=== PATIENT | female | born 1940 | race Caucasian/White ===

== ENCOUNTER 2017-04-17 09:18 | Inpatient (IN) | payer OTHER ==
[~2017-04-17] VITALS: Ht 157.5 cm; Wt 66.2 kg
--- NOTE | ~2017-04-17 | HC ---
[facility] [place] [address] CONSULTATION Name: SHREYASBECCA CRISTIAN Room #: 402-P [facility] IN M..#: [id number] Admission: 04/17/17 Attend Phys: Christoph Hess MD Discharge: 04/18/17 Date of : 42 Report #: [id number] THIS REPORT FOR: //name// CC: Andriy Hess DATE OF SERVICE: 04/17/2017 CHIEF COMPLAINT: Right wrist pain. HISTORY OF PRESENT ILLNESS: The patient is a very pleasant 76-year-old female seen today for evaluation of her right wrist. The patient reports that she slipped and fell on her driveway, landed on her outstretched hand resulting in a laceration as well as deformity. She then went to [facility] for further care and treatments. She denies loss of consciousness or other injuries. She reports a history of a left wrist distal radius fracture a few years ago. The patient is here with friend. PAST MEDICAL HISTORY: Significant for hypertension, prior history of left distal radius fracture, and left bundle branch block. PAST SURGICAL HISTORY: Hysterectomy in 1988. ALLERGIES: No known drug allergies. PHYSICAL EXAMINATION: VITAL SIGNS: Include BP 168/59, pulse 52, respirations 18, pulse ox was 95-100%, temperature was 98.3. GENERAL: She is alert, oriented, answering questions appropriately. EXTREMITIES: Revealed a well-healed incision on the left wrist. Right wrist demonstrated some multiple abrasions on the volar aspect of the wrist with a small punctate area approximately 2 mm where there appeared to be some intermittent bleeding. This was in the region of the metaphyseal area of the distal radius and potentially communicating with the fracture. Mild swelling was noted. Compartments were soft. She is able to minimally flex and extend the fingers and reported intact sensation to light touch. Denied tenderness about the more proximal forearm, elbow, arm or shoulder. She reported no other injuries. IMAGING: Radiographs reveal a comminuted and displaced distal radius and ulna fracture. IMPRESSION: Grade 1 open fracture of the right distal radius, with displacement noted. PLAN: Tetanus and antibiotics have been initiated and updated in the Emergency [address] [address] CONSULTATION Name: BECCA PRITCHETT Room #: 402-P [facility] IN .R.#: [id number] Admission: 04/17/17 Attend Phys: Christoph Hess MD Discharge: 04/18/17 Date of : 42 Report #: [id number] Room. A sterile dressing was applied. She was splinted with a volar wrist splint by the Emergency Room. The patient is going to be admitted by the Hospitalist Group and will plan for operative intervention when the operating room is available and implants are available. We discussed the risks and potential complications of her injury as well as the risks, benefits, alternatives and potential complications of her treatment. The patient wished to proceed with irrigation and debridement of fracture. We discussed the potential for infection with this being an open fracture and then we discussed the specifics of her potential planned hardware. Questions were encouraged, all were answered. The patient had a chance to be evaluated by Medicine as well as Anesthesia preoperatively. We will complete her antibiotic course and if patient does well as expected, hopefully patient can be discharge tomorrow. <ELECTRONICALLY SIGNED> By: Rodrigo Ford MD 05/11/17 1514 [id number] [id number] Rodrigo Ford MD /nt
--- NOTE | ~2017-04-17 | EKG ---
[place] [address] [facility] [place] [address] ELECTROCARDIOGRAM REPORT Name: BECCA PRITCHETT CRISTIAN Room #: 402-P ADM IN M.R.#: [id number] Admission: 04/17/17 Attend Phys: Christoph Hess MD Discharge: Date of : 42 Report #: [id number] THIS REPORT FOR: //name// [facility] ED Test Date: 2017-04-17 Test Time: 13:34:43 Pat Name: BECCA PRITCHETT Department: Room: 402 Gender: F Recovery Coordinator: DAVID : 1940 Requested By: Ellen Patel Order Number: [id number] MD: Yohan Greenwood Measurements Intervals [place] Rate: 54 P: RI: QRS: -16 QRSD: 162 T: 168 QT: 488 QTc: 463 Interpretive Statements Sinus bradycardia Left bundle branch block No previous ECG available for comparison Electronically Signed On 04-18-2017 15:45:48 BUSINESS AFFAIRS MANAGER by Yohan Greenwood [email or web address] <ELECTRONICALLY SIGNED> By: Yohan Greenwood MD, [facility] 04/18/17 1545 1334 1334 Yohan Greenwood MD, FACC /EPI
--- NOTE | ~2017-04-17 | O ---
[facility] [place] [address] OPERATIVE REPORT Name: PRITCHETTBECCA FOSTER Room #: 402-P [facility] IN M.R.#: [id number] Admission: 04/17/17 Attend Phys: Christoph Hess MD Discharge: 04/18/17 Date of : 42 Report #: [id number] THIS REPORT FOR: //name// CC: Andriy Hess DATE OF SERVICE: 04/17/2017 PREOPERATIVE DIAGNOSIS: Right distal radius and ulna fracture, displaced, open. POSTOPERATIVE DIAGNOSIS: Grade 1 open distal radius fracture, distal ulna fracture. PROCEDURE PERFORMED: Irrigation and debridement of open distal radius fracture, open reduction and internal fixation of right distal radius fracture. SURGEON: Rodrigo Ford M.D. BATTERY CHECKER: Fabiola Santiago PA-C ANESTHESIA: General per LMA. FLUIDS: 600 mL of crystalloid. ESTIMATED BLOOD LOSS: Approximately 10 mL. TOURNIQUET TIME: 33 minutes at 250 mmHg. IMPLANTS UTILIZED: Acumed volar distal locking plate. DESCRIPTION OF PROCEDURE: After proper identification of the patient and operative site in preoperative holding area, the operative site was signed by myself. Prophylactic antibiotics have been given in the Emergency Room as well as tetanus has been up dated. The patient was seen earlier today in the Emergency Department at approximately 12:45. The patient was then brought back to the operative suite after we had reviewed the risks, benefits, alternatives, potential complications of her injury as well as treatment. After induction of satisfactory general anesthesia per LMA, the right upper extremity was elevated, tourniquet was applied and it was sterilely prepped and draped in usual manner. Tourniquet was inflated to 250 mL. The patient had abrasions on the volar aspect of the distal forearm and wrist. There was an area along the more radial aspect where it did penetrate through the dermis. There was no evidence of bone penetration through this, but it did communicate to that level after an incision was made and this was explored. There was no devitalized tissue or gross contamination noted. The FCR tendon was identified and retracted ulnarly. There was some maceration of the muscle fibers in this region and the FPL muscle [address] [address] OPERATIVE REPORT Name: PRITCHETTBECCA Room #: 402-P [facility] IN .R.#: [id number] Admission: 04/17/17 Attend Phys: Christoph Hess MD Discharge: 04/18/17 Date of : 42 Report #: [id number] belly and tendon was carefully retracted. Neurovascular structures were identified and protected. The wound was thoroughly irrigated with antibiotic irrigant with bulb syringe. The bone ends were irrigated as well. The distal radius was exposed with subperiosteal dissection. After satisfactory exposure, an Acumed distal radius locking plate was provisionally secured with a single cortical screw. The position was verified and the fracture had been held reduced with single K-wire inserted percutaneously through the radial thyroid. The distal ulna fracture aligned up near anatomically in the AP, oblique and lateral planes. Four distal locking pegs were inserted into the distal radius and two distal locking screws more proximally based. The repair construct was stable. The ulna appeared to be stable in a near anatomically alignment. The wound was again thoroughly irrigated with antibiotic irrigant and there was good hemostasis. 3-0 Vicryl was used to close subcutaneous tissues followed by nylon stitches for the skin. Sterile dressing was applied. She was then placed in a volar wrist splint and at the time of dictation was still in the Operative Suite with anticipated discharge to recovery room in stable condition. <ELECTRONICALLY SIGNED> By: Rodrigo Ford MD 05/11/17 1514 1803 [id number] Rodrigo Ford MD /nt
[2017-04-17 10:08] VITALS: BP 171/62
[2017-04-17 12:32] LABS: BASOPHILS 0.4 % (0.0-2.0); EOSINOPHILS 0.3 % (0.0-3.0); HEMATOCRIT 38.7 % (37.0-47.0); HEMOGLOBIN 13.1 gm/dL (12.0-15.0); LYMPHOCYTES 15.3 % (24.0-44.0); MCH 30.9 pg (26.0-34.0); MCHC 33.7 g/dL (28.0-37.0); MCV 91.5 fL (80.0-100.0); MONOCYTES 3.2 % (1.0-8.0); PLATELET COUNT 267 thou/uL (150-400); POLYS 80.8 % (36.0-66.0); RBC 4.23 mil/uL (4.20-5.00); RDW 13.1 % (10.5-14.5); WBC 12.3 thou/uL (4.0-11.0)
[2017-04-17 12:39] LABS: CALCIUM 9.9 mg/dL (8.5-10.1); CREATININE 1.1 mg/dL (0.6-1.0); POTASSIUM 3.9 mmol/L (3.5-5.1)
[2017-04-17] MEDS ORDERED: LOTENSIN40 MG PO (12:44)
[2017-04-17 12:45] LABS: ALBUMIN 3.8 g/dL (3.4-5.0); TOTAL BILIRUBIN 0.3 mg/dL (<0.1-1.0); TOTAL PROTEIN 7.3 g/dL (6.4-8.2)
[2017-04-17] MEDS ORDERED: HYDROCHLOROTHIA25 M2 PO (12:45)
[2017-04-17 13:33] VITALS: BP 167/57
[2017-04-17 19:45] VITALS: BP 153/64
[2017-04-17 20:00] VITALS: BP 122/71
[2017-04-17 20:30] VITALS: BP 139/54
[2017-04-17 21:00] VITALS: BP 126/53
[2017-04-18] VITALS: BP 135/48
[2017-04-18 04:00] VITALS: BP 140/49
[2017-04-18 06:05] LABS: ABSOLUTE NEUTROPHILS 5.8 thou/uL (1.4-8.2); BASOPHILS 0.3 % (0.0-2.0); EOSINOPHILS 0.7 % (0.0-3.0); HEMATOCRIT 34.7 % (37.0-47.0); HEMOGLOBIN 11.8 gm/dL (12.0-15.0); MCH 31.5 pg (26.0-34.0); MCHC 33.9 g/dL (28.0-37.0); MCV 92.9 fL (80.0-100.0); MONOCYTES 8.5 % (1.0-8.0); PLATELET COUNT 232 thou/uL (150-400); POLYS 57.5 % (36.0-66.0); RBC 3.73 mil/uL (4.20-5.00); RDW 13.4 % (10.5-14.5); WBC 10.1 thou/uL (4.0-11.0)
[2017-04-18 06:28] LABS: CALCIUM 8.5 mg/dL (8.5-10.1); MAGNESIUM 1.8 mg/dL (1.8-2.4); POTASSIUM 3.5 mmol/L (3.5-5.1)
[2017-04-18 07:29] VITALS: BP 128/47
[2017-04-18] MEDS ORDERED: HYDROCODON-ACE1 EAC7 PO (15:25)
[2017-04-18 15:39] VITALS: BP 128/47
[2017-04-18 15:43] VITALS: BP 128/47
[2017-04-18 16:13] VITALS: BP 128/47
== END 2017-04-18 16:22 | disposition home or self-care (01) | DRG 511 ==
LOC: ER 09:18 → 4N 12:46 → EROBS 12:46 → 4N 13:30 → ENTRNSPT 04-18 16:12 → 4N 04-18 16:22
PROVIDERS: Nurse Practitioner; Physician Assistant
PROC: 0PSH04Z Reposition Right Radius with Internal Fixation Device, Open Approach (ICD-10-PCS; principal; 2017-04-17)
PROC: 0PBH0ZZ Excision of Right Radius, Open Approach (ICD-10-PCS; principal; 2017-04-17)
DX: S52.501B Unspecified fracture of the lower end of right radius, initial encounter for open fracture type I or II (principal); N17.9 Acute kidney failure, unspecified; I10 Essential (primary) hypertension; E86.0 Dehydration; Z60.2 Problems related to living alone; S52.601B Unspecified fracture of lower end of right ulna, initial encounter for open fracture type I or II; Z90.710 Acquired absence of both cervix and uterus; W01.0XXA Fall on same level from slipping, tripping and stumbling without subsequent striking against object, initial encounter; Y93.01 Activity, walking, marching and hiking; Y92.89 Other specified places as the place of occurrence of the external cause; Y99.8 Other external cause status; Z23 Encounter for immunization
CPT/HCPCS: 10091; 50010; 50101; 50386; 51739; 55430; 56524; 56527; 57091; 62110; 62900; 70005